=== PATIENT | female | born 1990 | race American Indian/Alaskan Native ===

== ENCOUNTER 2019-06-27 21:43 | Emergency (ER) | payer BC ==
[2019-06-27] MEDS ORDERED: ZOFRAN ODT PO ONE (22:21)
[2019-06-27] MEDS ORDERED: ZOFRAN ODT ONE (22:26)
[2019-06-27] MEDS ORDERED: TYLENOL PO ONE (22:54)
--- NOTE | 2019-06-27 23:07 | Emergency Department Report ---
HPI - General Chief Complaint: Nausea/Vomiting/Diarrhea Time Seen by Provider: 06/27/19 22:50 - HPI HPI: 29-year-old -[place] female presents to the emergency department with a complaint of a one-week history of nausea, vomiting and mid abdominal pain. Patient says that she missed her last period and feels that she could be , however she did have a negative home test recently. She denies any vaginal bleeding, dysuria, fever. Denies any past medical history. She has an [facility]IENT [facility] at [facility]. She has not taken anything for her symptoms prior to presentation today. ED Past Medical Hx - Past Medical History Hx Hypertension: No Hx Congestive Heart Failure: No Hx Diabetes: No Hx Deep Vein Thrombosis: No Hx Renal Disease: No Hx Sickle Cell Disease: No Hx Seizures: No Hx Asthma: Yes Hx COPD: No Hx HIV: No Additional medical history: eczema - Surgical History Past Surgical History?: No Additional Surgical History: tonsilectomy, 4 D & C - Social History Smoking Status: Never Smoker Substance Use Type: None - Medications Home Medications: Home Medications Medication Instructions Recorded Confirmed Last Taken Type Triamcinolone 0.5% [Kenalog 0.5% 1 applic TP TID 05/17/13 06/16/15 04/09/15 History Cream] Albuterol Sulfate [Proventil HFA] 2 puff INHALATION PRN PRN 04/09/15 06/16/15 Unknown History Hydrocortisone [Cortisone] 1 applic TP BID 04/09/15 06/16/15 06/14/15 History Pnv,Calcium 72/Iron/Folic Acid 1 tab PO DAILY 04/09/15 06/16/15 06/14/15 History [ Plus Tablet] Nitrofurantoin Randolph/M-Cryst 100 mg PO Q12HR #13 capsule 03/24/16 Unknown Rx [Macrobid CAP] Triamcinolone Acetonide 60 ml TP BID #1 lotion 03/24/16 Unknown Rx [Triamcinolone 0.1% LOTION] methylPREDNISolone [Medrol] 4 mg PO QDAY #1 tab.ds.pk 03/24/16 Unknown Rx Metoclopramide [Reglan] 10 mg PO TID PRN #16 tab 06/28/19 Unknown Rx Nitrofurantoin Randolph/M-Cryst 100 mg PO Q12HR #14 capsule 06/28/19 Unknown Rx [Macrobid CAP] Vit-Fe Fumar-FA [ 1 tab PO QDAY #30 tablet 06/28/19 Unknown Rx Vitamin] ED Review of Systems ROS: Stated complaint: N/V Other details as noted in HPI Comment: All other systems reviewed and negative Constitutional: denies: chills, fever Respiratory: denies: cough, shortness of breath Cardiovascular: denies: chest pain, palpitations Gastrointestinal: abdominal pain, nausea, vomiting Genitourinary: abnormal menses. denies: dysuria Musculoskeletal: denies: back pain, arthralgia Neurological: denies: headache, weakness Physical Exam - Physical Exam Vital Signs: Vital Signs 06/27/19 21:55 Temperature 98.2 F Pulse Rate 116 H Respiratory 16 Rate Blood Pressure 143/84 O2 Sat by Pulse 96 Oximetry Physical Exam: GENERAL: The patient is well-developed well-nourished. HENT: Normocephalic. Atraumatic. Patient has moist mucous membranes. EYES: Extraocular motions are intact. NECK: Supple. Trachea is midline. CHEST/LUNGS: Clear to auscultation. There is no respiratory distress noted. HEART/CARDIOVASCULAR: Regular. There is no tachycardia. There is no murmur. ABDOMEN: Abdomen is soft, nontender. Patient has normal bowel sounds. There is no abdominal distention. SKIN: Skin is warm and dry. NEURO: The patient is awake, alert, and oriented. The patient is cooperative. The patient has no focal neurologic deficits. Normal speech. MUSCULOSKELETAL: There is no tenderness or deformity. There is no evidence of acute injury. ED Course Vital Signs 06/27/19 21:55 Temperature 98.2 F Pulse Rate 116 H Respiratory 16 Rate Blood Pressure 143/84 O2 Sat by Pulse 96 Oximetry ED Medical Decision Making - Lab Data Result diagrams: 06/27/19 22:40 06/27/19 22:40 - Radiology Data Radiology results: report reviewed US OB transvaginal, US OB <= 14 weeks fetus INDICATION / CLINICAL INFORMATION: Preg, abd pain. COMPARISON: None available. FINDINGS: A single intrauterine gestation is demonstrated with crown rump length 14.6 mm corresponding to a 7 week 6 day gestation. heart rate is recorded at 159 bpm Left ovary measures 2.1 x 1.9 cm and appears normal. The right ovary measures 2.8 x 2.2 cm with a complex 1.6 cm cyst. IMPRESSION: 1. Viable 7 week 6 day intrauterine gestation. - Medical Decision Making This patient presents with the complaint of nausea, vomiting, pelvic discomfort and concern for possible . She was on serum qualitative test. An ultrasound was done that shows a live intrauterine at 7 weeks and 6 days. Patient denies any vaginal bleeding. Urinalysis shows a mild urinary tract infection. Patient was given a dose of Zofran and there has been no further vomiting within the emergency department. She was able to pass an oral challenge. Vital signs stable throughout her ED course including being afebrile. She appears safe for discharge home at this time. She has good fo llow-up for PATIENT [facility]. She's been started on antibiotics, vitamins and some Reglan for her nausea and vomiting. She will return to the ER with any worsening of her symptoms or any acute distress. - Differential Diagnosis , miscarriage, viral gastroenteritis, food poisoning Critical Care Time: No Critical care attestation.: If time is entered above; I have spent that time in minutes in the direct care o f this critically ill patient, excluding procedure time. ED Disposition Clinical Impression: Qualifiers: Weeks of gestation: less than 8 weeks Qualified Code(s): Z3A.01 - Less than 8 weeks gestation of Nausea & vomiting Qualifiers: Vomiting type: unspecified Vomiting Intractability: non-intractable Qualified Code(s): R11.2 - Nausea with vomiting, unspecified UTI (urinary tract infection) Qualifiers: Urinary tract infection type: acute cystitis Hematuria presence: without hematuria Qualified Code(s): N30.00 - Acute cystitis without hematuria Disposition: DC-01 TO HOME OR SELFCARE Is pt being admited?: No Condition: Stable Instructions: (ED), Urinary Tract Infection in Women (ED), Acute Nausea and Vomiting (ED) Additional Instructions: Increase your oral rehydration. Please follow-up with your primary care physician and PATIENT [facility] in the next few days. Return to the emergency Department with any worsening of your symptoms, inability to stay hydrated, sharp abdominal pains, vaginal bleeding, or with any acute distress. I'm starting you on vitamins. I am also giving you a prescription for antibiotics for your urinary tract infection, and a prescription for nausea medication. Prescriptions: Nitrofurantoin Randolph/M-Cryst [Macrobid CAP] 100 mg PO Q12HR #14 capsule Vit-Fe Fumar-FA [ Vitamin] 1 tab PO QDAY #30 tablet Metoclopramide [Reglan] 10 mg PO TID PRN #16 tab PRN Reason: Nausea Referrals: PRIMARY CARE, [Primary Care Provider] - 2-3 Days [facility] [Provider Group] - 2-3 Days Forms: Work/School Release Form(ED) Time of Disposition: 03:11
[2019-06-27 23:18] LABS: Basophils % (Auto) 0.3 % (0.0-1.8); Eosinophils # (Auto) 0.1 K/mm3 (0.0-0.4); Eosinophils % (Auto) 0.9 % (0.0-4.3); Hematocrit 41.9 % (30.3-42.9); Hemoglobin 13.8 gm/dl (10.1-14.3); Lymphocytes # (Auto) 2.3 K/mm3 (1.2-5.4); Lymphocytes % (Auto) 25.6 % (13.4-35.0); Mean Corpuscular HGB Conc 33 % (30-34); Mean Corpuscular Volume 85 fl (79-97); Monocytes # (Auto) 0.7 K/mm3 (0.0-0.8); Monocytes % (Auto) 7.7 % (0.0-7.3); Platelet Count 275 K/mm3 (140-440); Red Blood Count 4.94 M/mm3 (3.65-5.03); Red Cell Distribution Width 13.9 % (13.2-15.2)
[2019-06-27 23:28] LABS: BUN/Creatinine Ratio 14; Blood Urea Nitrogen 10 mg/dL (7-17); Calcium 9.1 mg/dL (8.4-10.2); Hemolysis Index 2
--- NOTE | 2019-06-28 02:16 | Ultrasound Report ---
US OB transvaginal, US OB <= 14 weeks fetus INDICATION / CLINICAL INFORMATION: Preg, abd pain. COMPARISON: None available. FINDINGS: A single intrauterine gestation is demonstrated with crown rump length 14.6 mm corresponding to a 7 w [place] 6 day gestation. heart rate is recorded at 159 bpm Left ovary measures 2.1 x 1.9 cm and appears normal. The right ovary measures 2.8 x 2.2 cm with a complex 1.6 cm cyst. IMPRESSION: 1. Viable 7 week 6 day intrauterine gestation. Signer Name: Mathew Clark MD Signed: 06/28/2019 2:12 AM Workstation Name: [id number]
--- NOTE | 2019-06-28 02:16 | Ultrasound Report ---
US OB transvaginal, US OB <= 14 weeks fetus INDICATION / CLINICAL INFORMATION: Preg, abd pain. COMPARISON: None available. FINDINGS: A single intrauterine gestation is demonstrated with crown rump length 14.6 mm corresponding to a 7 w [place] 6 day gestation. heart rate is recorded at 159 bpm Left ovary measures 2.1 x 1.9 cm and appears normal. The right ovary measures 2.8 x 2.2 cm with a complex 1.6 cm cyst. IMPRESSION: 1. Viable 7 week 6 day intrauterine gestation. Signer Name: Mathew Clark MD Signed: 06/28/2019 2:12 AM Workstation Name: [id number]
[2019-06-28 03:06] LABS: Bacteria,Urine 1+ /HPF (Negative); Bilirubin,Urine NEG (Negative); Blood,Urine NEG (Negative); Color,Urine Yellow (Yellow); Mucus,Urine 3+ /HPF; Urobilinogen,Urine < 2.0 mg/dL (<2.0)
[2019-06-28 03:28] VITALS: BP 122/75
== END 2019-06-28 03:25 | disposition home or self-care (01) ==
LOC: ED 21:43
DX: O23.41 Unspecified infection of urinary tract in pregnancy, first trimester (principal); Z3A.01 Less than 8 weeks gestation of pregnancy; O99.511 Diseases of the respiratory system complicating pregnancy, first trimester; J45.909 Unspecified asthma, uncomplicated; Z91.040 Latex allergy status; Z88.2 Allergy status to sulfonamides; Z79.899 Other long term (current) drug therapy; Z90.89 Acquired absence of other organs
CPT/HCPCS: 36415; 76801; 76817; 80048; 81001; 84703; 85025; 87086; Q0162